=== PATIENT | male | born 1945 | race African-American/Black ===

== ENCOUNTER 2016-11-11 11:39 | Emergency (ER) | payer MEDICARE ==
[~2016-11-11] VITALS: Ht 182.9 cm; Wt 83.9 kg
[~2016-11-11 11:39] MED LIST: ATRIPLA TABLET1 EACH PO; AZITHROMYCIN250 MG PO; HYDROCHLOROTHIA25 MG PO; PRENATAL TABLE1 EAC1 PO; VASOTEC20 MG PO; VITAMIN C500 M2 PO; VITAMIN E400 UNI1 PO; [UNRECOGNIZED DRUG - OTHER] PO
[2016-11-11 12:07] VITALS: BP 142/70
[2016-11-11] MEDS ORDERED: PROMETHAZINE-D118 ML ORAL (12:17)
[2016-11-11] MEDS ORDERED: LEVAQUIN750 MG ORAL (12:17)
[2016-11-11] MEDS ORDERED: ALBUTEROL SULF8.5 GM INH (12:17)
--- NOTE | 2016-11-11 14:11 | Emergency Room Report ---
History of Present Illness General Chief Complaint: Upper Respiratory Illness Source: Patient Present Illness HPI 71-year-old male presents ED complaining of cough times one week. Cough is productive with whitish phlegm. Denies any fevers or chills. Denies chest pain or shortness of breath. Patient notes history of HIV-states he is compliant with his medications and states he has a high CD4 count in a very low viral load. Denies sick contacts or recent travel. No other aggravating relieving factors. Denies any other associated symptoms Allergies: Coded Allergies: No Known Allergies (Unverified , 09/30/12) Patient History Past Medical History: HTN, HIV Past Surgical History: none Pertinent Family History: none Social History: Denies: alcohol use, drug use, smoking Immunizations: UTD Reviewed Nursing Documentation: PMH: Agreed, PSxH: Agreed Nursing Documentation-PMH Past Medical History: No History, Except For Hx Hypertension: Yes Review of Systems All Other Systems: negative except mentioned in HPI Physical Exam Vital Signs Date Time Temp Pulse Resp B/P Pulse Ox O2 Delivery O2 Flow Rate FiO2 11/11/16 11:54 97.9 86 16 142/70 97 Room Air Sp02 EP Interpretation: reviewed, normal General Appearance: no apparent distress, alert, GCS 15, non-toxic Head: normocephalic, atraumatic Eyes: bilateral eye PERRL, bilateral eye normal inspection ENT: hearing grossly normal, normal pharynx, no angioedema, normal voice Neck: full range of motion, supple/symm/no masses Respiratory: chest non-tender, lungs clear, normal breath sounds, speaking full sentences Cardiovascular #1: regular rate, rhythm, no edema Cardiovascular #2: 2+ carotid (R), 2+ carotid (L), 2+ radial (R), 2+ radial (L) , 2+ dorsalis pedis (R), 2+ dorsalis pedis (L) Gastrointestinal: normal bowel sounds, non tender, soft, non-distended, no guarding, no rebound Rectal: deferred Genitourinary: normal inspection, no CVA tenderness Musculoskeletal: back normal, gait/station normal, normal range of motion, non- tender Neurologic: alert, oriented x3, responsive, motor strength/tone normal, sensory intact, speech normal Psychiatric: judgement/insight normal, memory normal, mood/affect normal, no suicidal/homicidal ideation Reflexes: 3+ bicep (R), 3+ bicep (L), 3+ tricep (R), 3+ tricep (L), 3+ knee (R) , 3+ knee (L) Skin: normal color, no rash, warm/dry, well hydrated Lymphatic: no adenopathy Medical Decision Making Diagnostic Impression: Primary Impression: Atypical pneumonia ER Course Hospital Course 71-year-old male presents to ED with cough times one week Differential diagnoses include: URI, pharyngitis, otitis media, asthma Clinical course Patient placed on stretcher. After initial history, physical exam reveals an elderly male in no acute distress. Bilateral TM unremarkable. No pharyngeal erythema. No tonsillar exudates. No lymphadenopathy. lungs clear. abdomen soft. Given patient's age and immunocompromised date we will treat with antibiotics Diagnosis - atypical pneumonia Stable and discharged home with Rx Levaquin, albuterol, cough syrup. Instructed to followup with PMD. Return to ED if symptoms recur or worsen Last Vital Signs Date Time Temp Pulse Resp B/P Pulse Ox O2 Delivery O2 Flow Rate FiO2 11/11/16 12:09 97.9 16 142/70 97 Room Air 11/11/16 12:07 86 Status: improved Disposition: HOME, SELF-CARE Condition: Stable Scripts D-Methorphan Hb/Prometh Hcl* (PROMETHAZINE-DM SYRUP*) 118 Ml Syrup 5 ML ORAL Q6H Y for For Cough, #118 ML 0 Refills Prov: ZEV CLEMENTS M.D. 11/11/16 Albuterol Sulfate* (ALBUTEROL SULFATE MDI*) 8.5 Gm Hfa.aer.ad 2 PUFF INH Q4H Y for cough/wheezing, #1 EA 0 Refills Prov: ZEV CLEMENTS M.D. 11/11/16 Levofloxacin* (LEVAQUIN*) 750 Mg Tablet 750 MG ORAL DAILY, #5 TAB Prov: ZEV CLEMENTS M.D. 11/11/16 Patient Instructions: Community-Acquired Pneumonia, Adult, [id number] ZEV CLEMENTS M.D. Nov 11, 2016 14:11
== END 2016-11-11 12:33 | disposition home or self-care (01) ==
LOC: EMR 12:15
DX: J18.9 Pneumonia, unspecified organism (principal); I10 Essential (primary) hypertension
CPT/HCPCS: 99284

== ENCOUNTER 2016-11-29 14:23 | Emergency (ER) | payer MEDICARE ==
[~2016-11-29] VITALS: Ht 182.9 cm; Wt 83.9 kg
[~2016-11-29 14:23] MED LIST changes: +ALBUTEROL SULF8.5 GM INH; +LEVAQUIN750 MG ORAL; +PROMETHAZINE-D118 ML ORAL
[2016-11-29] MEDS ORDERED: PROMETHAZINE-D118 ML ORAL (15:17)
[2016-11-29 15:28] VITALS: BP 151/90
--- NOTE | 2016-11-29 21:25 | Emergency Room Report ---
History of Present Illness General Chief Complaint: Upper Respiratory Illness Source: Patient (CHASE GARVIN) Present Illness HPI The patient is a 71-year-old male with history of HIV presenting for continued productive cough which began 3 weeks prior. The patient was seen in this emergency Department and treated for atypical pneumonia. Patient was given a prescription for Levaquin and cough medication. The patient states that symptoms did improve and the patient has not had a fever since finishing the antibiotics the cough has persisted. Patient states the cough this is a white sputum only. The patient denies any other symptoms including F, Chills, N, V, SANCHEZ, neck pain/stiffness, SOB, CP (CHASE GARVIN) Allergies: Coded Allergies: No Known Allergies (Unverified , 09/30/12) Patient History Past Medical History: see triage record Pertinent Family History: none Reviewed Nursing Documentation: PMH: Agreed, PSxH: Agreed (CHASE GARVIN) Nursing Documentation-PMH Past Medical History: No History, Except For Hx Hypertension: Yes (CHASE GARVIN) Review of Systems All Other Systems: negative except mentioned in HPI (CHASE GARVIN) Physical Exam Vital Signs Date Time Temp Pulse Resp B/P Pulse Ox O2 Delivery O2 Flow Rate FiO2 11/29/16 14:39 98.1 87 22 135/79 95 Room Air Sp02 EP Interpretation: reviewed, normal General Appearance: no apparent distress, alert, GCS 15, non-toxic Head: normocephalic, atraumatic Eyes: bilateral eye PERRL, bilateral eye normal inspection ENT: hearing grossly normal, normal pharynx, no angioedema, normal voice Neck: full range of motion, supple/symm/no masses Respiratory: chest non-tender, lungs clear, normal breath sounds, speaking full sentences Cardiovascular #1: regular rate, rhythm, no edema Gastrointestinal: normal bowel sounds, non tender, soft, non-distended, no guarding, no rebound Musculoskeletal: back normal, gait/station normal, normal range of motion, non- tender Neurologic: alert, oriented x3, responsive, motor strength/tone normal, sensory intact, normal gait, speech normal Psychiatric: judgement/insight normal, memory normal, mood/affect normal, no suicidal/homicidal ideation Skin: normal color, no rash, warm/dry, well hydrated Lymphatic: no adenopathy (CHASE GARVIN) Medical Decision Making [place] Attestation Dr. Godoy is my supervising physician. Patient management was discussed with my supervising physician (CHASE GARVIN) Medicare Attestation The history of Maxime Caraballo has been reviewed and management options for him have been examined and discussed by Mitch Godoy. I have personally examined and interviewed the patient. (MITCH GODOY M.D.) Diagnostic Impression: Primary Impression: Atypical pneumonia ER Course The patient is a 71-year-old male with history of HIV presenting for continued productive cough Differential diagnosis include but not limited to pharyngitis, sinusitis, AOM, bronchitis, PNA PE: No apparent distress. No TTP over maxillary or frontal sinuses. Lungs CTA bilat. No wheezing. No accessory muscle use. Heart: RRR, no abnormal heart sounds Ears: external auditory canal clear. Non erythematous. Bilat TM intact. Cone of light present bilat. No bulging of TM. No serous fluid seen. no nasal D/C no cervical lymphad No tonsillar exudate. Uvula midline.Oropharynx non erythematous Patient is advised that there are no signs of infection other than cough and symptoms have improved since last visit. The patient will not be placed on your antibiotics. Patient will be given a prescription for cough medication and is given ER precautions. Patient will follow up with his PMD (CHASE GARVIN) Last Vital Signs Date Time Temp Pulse Resp B/P Pulse Ox O2 Delivery O2 Flow Rate FiO2 11/29/16 15:28 91 16 151/90 99 Room Air 11/29/16 15:28 98.0 Status: improved (CHASE GARVINAYaniv) Disposition: HOME, SELF-CARE Condition: Improved Scripts D-Methorphan Hb/Prometh Hcl* (PROMETHAZINE-DM SYRUP*) 118 Ml Syrup 5 ML ORAL Q6H Y for For Cough, #118 ML 0 Refills Prov: CHASE GARVIN 11/29/16 Referrals: [facility],REFERRING (PCP) Patient Instructions: Cough, Adult Additional Instructions: I discussed my findings with the patient. All questions and concerns have been answered. Treatment and medication compliance have been addressed. I advised the patient that they need to follow up with PMD in 3-5 days. Return to ED if pain remains or worsens, cough worsens or remains, you notice blood in your sputum, you notice wheezing, you experience a fever, or if needed for any reason. Patient verbalized understanding of discharge instructions. CHASE GARVIN Nov 29, 2016 21:25 MITCH GODOY M.D. Dec 02, 2016 06:32
== END 2016-11-29 16:30 | disposition home or self-care (01) ==
LOC: EMR 16:17
DX: J18.9 Pneumonia, unspecified organism (principal); I10 Essential (primary) hypertension
CPT/HCPCS: 99283

== ENCOUNTER 2017-11-16 13:39 | Emergency (ER) | payer MEDICARE ==
[~2017-11-16] VITALS: Ht 185.4 cm; Wt 83.9 kg
--- NOTE | 2017-11-16 14:43 | Diagnostic Imaging Report ---
Indication: Cough Comparison: July 14, 2012 A single view chest radiograph was obtained. Findings: Cardiomediastinal appearance is within normal limits for age. Aorta is mildly calcified. Pulmonary vascularity is appropriate. The diaphragmatic contour is smooth and costophrenic angles are sharp. No pleural effusions are identified. The bones are unremarkable. Impression: No acute findings
[2017-11-16] MEDS ORDERED: Albuterol ud Inhalation HHN ONE (14:45)
--- NOTE | 2017-11-16 15:16 | Emergency Room Report ---
History of Present Illness General Chief Complaint: Upper Respiratory Illness Source: Patient, Medical Record Present Illness HPI This patient is HIV positive. He states that he is on antiretroviral therapy. He states his viral load is undetectable and a CD4 count is within normal limits. He reports that he has had cough and congestion for the past 3 days. He has had some sputum production that is white in color. He denies chest pain or shortness of breath. He denies abdominal pain. He denies fever or chills. He denies nausea or vomiting. He denies that headache or neck pain. He has no other complaints. Allergies: Coded Allergies: No Known Allergies (Unverified , 09/30/12) Patient History Past Medical History: see triage record, HTN, HIV Social History: Denies: smoking, alcohol use, drug use Reviewed Nursing Documentation: PMH: Agreed, PSxH: Agreed Nursing Documentation-PMH Past Medical History: No History, Except For Hx Hypertension: Yes Review of Systems All Other Systems: negative except mentioned in HPI Physical Exam Vital Signs Date Time Temp Pulse Resp B/P (MAP) Pulse Ox O2 Delivery O2 Flow Rate FiO2 11/16/17 13:50 99.4 99 18 144/69 94 Room Air 99.3 11/16/17 15:06 21 Sp02 EP Interpretation: reviewed, normal General Appearance: no apparent distress, alert, GCS 15, non-toxic Head: normocephalic, atraumatic Eyes: bilateral eye normal inspection, bilateral eye PERRL ENT: hearing grossly normal, normal pharynx, no angioedema, normal voice Neck: full range of motion, supple/symm/no masses Respiratory: chest non-tender, no respiratory distress, no retraction, no accessory muscle use, speaking full sentences, wheezing, expiration Cardiovascular #1: regular rate, rhythm, no edema Gastrointestinal: normal bowel sounds, non tender, soft, non-distended, no guarding, no rebound Rectal: deferred Musculoskeletal: back normal, gait/station normal, normal range of motion, non- tender Neurologic: alert, oriented x3, responsive, motor strength/tone normal, sensory intact, speech normal Psychiatric: judgement/insight normal, memory normal, mood/affect normal, no suicidal/homicidal ideation Skin: normal color, no rash, warm/dry, well hydrated Medical Decision Making Diagnostic Impression: Primary Impression: Upper respiratory infection Additional Impression: Reactive airway disease with wheezing ER Course This patient has a clinical presentation consistent with upper respiratory infection and reactive airway disease. Patient has wheezing on physical exam. The patient was given albuterol nebulizer treatments. The patient's lung exam improved significantly. I will also treat the patient with a course of antibiotics as this has been shown to improve the course of reactive airway disease, and further I am concerned that this patient is immunocompromised at baseline. Overall, he is well appearing without respiratory distress and nontoxic. At this time, the patient does not require hospital admission. The patient was given close return precautions and followup instructions. Laboratory Tests Test 11/16/17 15:06 11/16/17 16:15 White Blood Count 8.2 K/UL (4.8-10.8) Red Blood Count 4.21 M/UL (4.70-6.10) L Hemoglobin 14.4 G/DL (14.2-18.0) Hematocrit 41.5 % (42.0-52.0) L Mean Corpuscular Volume 99 FL (80-99) Mean Corpuscular Hemoglobin 34.2 PG (27.0-31.0) H Mean Corpuscular Hemoglobin Concent 34.7 G/DL (32.0-36.0) Red Cell Distribution Width 10.8 % (11.6-14.8) L Platelet Count 150 K/UL (150-450) Mean Platelet Volume 8.6 FL (6.5-10.1) Neutrophils (%) (Auto) 47.5 % (45.0-75.0) Lymphocytes (%) (Auto) 36.6 % (20.0-45.0) Monocytes (%) (Auto) 13.0 % (1.0-10.0) H Eosinophils (%) (Auto) 1.0 % (0.0-3.0) Basophils (%) (Auto) 1.9 % (0.0-2.0) Sodium Level 135 MMOL/L (136-145) L Potassium Level 3.4 MMOL/L (3.5-5.1) L Chloride Level 98 MMOL/L (98-107) Carbon Dioxide Level 27 MMOL/L (21-32) Anion Gap 10 mmol/L (5-15) Blood Urea Nitrogen 13 mg/dL (7-18) Creatinine 1.3 MG/DL (0.55-1.30) Estimate Glomerular Filtration Rate mL/min (>60) Glucose Level 82 MG/DL (74-106) Lactic Acid Level Pending Calcium Level 9.4 MG/DL (8.5-10.1) Total Bilirubin 0.6 MG/DL (0.2-1.0) Aspartate Amino Transferase (AST) 36 U/L (15-37) Alanine Aminotransferase (ALT) 25 U/L (12-78) Alkaline Phosphatase 56 U/L (46-116) Total Protein 7.9 G/DL (6.4-8.2) Albumin 3.5 G/DL (3.4-5.0) Globulin 4.4 g/dL Albumin/Globulin Ratio 0.8 (1.0-2.7) L Urine Color Pale yellow Urine Appearance Clear Urine pH 7 (4.5-8.0) Urine Specific Ringle 1.005 (1.005-1.035) Urine Protein Negative (NEGATIVE) Urine Glucose (UA) Negative (NEGATIVE) Urine Ketones Negative (NEGATIVE) Urine Occult Blood 2+ (NEGATIVE) H Urine Nitrite Negative (NEGATIVE) Urine Bilirubin Negative (NEGATIVE) Urine Urobilinogen Normal MG/DL (0.0-1.0) Urine Leukocyte Esterase Negative (NEGATIVE) Urine RBC 2-4 /HPF (0 - 0) H Urine WBC 0-2 /HPF (0 - 0) Urine Squamous Epithelial Cells None /LPF (NONE/OCC) Urine Bacteria Few /HPF (NONE) EKG Diagnostic Results Rate: normal Rhythm: NSR ST Segments: no acute changes Rhythm Strip Diag. Results EP Interpretation: yes Rate: 90's Rhythm: NSR, no PVC's, no ectopy Chest X-Ray Diagnostic Results Chest X-Ray Diagnostic Results : Chest X-Ray Ordered: Yes # of Views/Limited/Complete: 1 View Indication: Other - cough EP Interpretation: No Interpretation: no consolidation, no effusion, no pneumothorax, no acute cardiopulmonary disease Impression: No acute disease Electronically Signed by: Rustam Last Vital Signs Date Time Temp Pulse Resp B/P (MAP) Pulse Ox O2 Delivery O2 Flow Rate FiO2 11/16/17 15:06 82 20 93 Room Air 21 11/16/17 13:50 99.4 144/69 99.3 Disposition: HOME, SELF-CARE Condition: Improved Patient Instructions: Upper Respiratory Infection, Adult CARLOS CHAVARRIA D.O. Nov 16, 2017 15:16
[2017-11-16 16:34] VITALS: BP 136/70
[2017-11-16 16:40] LABS: BASOPHILS % (AUTO) 1.9 % (0.0-2.0); HEMATOCRIT 41.5 % (42.0-52.0); HEMOGLOBIN 14.4 G/DL (14.2-18.0); LYMPHOCYTES % (AUTO) 36.6 % (20.0-45.0); MEAN CORPUSCULAR VOLUME 99 FL (80-99); NEUTROPHILS % (AUTO) 47.5 % (45.0-75.0); PLATELET COUNT 150 K/UL (150-450); RED BLOOD COUNT 4.21 M/UL (4.70-6.10); RED CELL DISTRIBUTION WIDTH 10.8 % (11.6-14.8); WHITE BLOOD COUNT 8.2 K/UL (4.8-10.8)
[2017-11-16 16:47] LABS: APPEARANCE,URINE CLEAR; BILIRUBIN, URINE NEGATIVE (NEGATIVE); COLOR,URINE PALE YELLOW; GLUCOSE, URINE (UA) NEGATIVE (NEGATIVE); KETONES,URINE NEGATIVE (NEGATIVE); LEUKOCYTE ESTERASE ,URINE NEGATIVE (NEGATIVE); NITRITE,URINE NEGATIVE (NEGATIVE); PH,URINE 7 (4.5-8.0); PROTEIN,URINE NEGATIVE (NEGATIVE); UROBILINOGEN,URINE NORMAL MG/DL (0.0-1.0)
[2017-11-16 16:57] LABS: ANION GAP 10 mmol/L (5-15); BLOOD UREA NITROGEN 13 mg/dL (7-18); CALCIUM 9.4 MG/DL (8.5-10.1); CARBON DIOXIDE 27 MMOL/L (21-32); CHLORIDE 98 MMOL/L (98-107); CREATININE 1.3 MG/DL (0.55-1.30); POTASSIUM 3.4 MMOL/L (3.5-5.1); SODIUM 135 MMOL/L (136-145)
[2017-11-16 17:02] LABS: ALANINE AMINOTRANSFERASE 25 U/L (12-78); ALBUMIN 3.5 G/DL (3.4-5.0); ALBUMIN/GLOBULIN RATIO 0.8 (1.0-2.7); ALKALINE PHOSPHATASE 56 U/L (46-116); ASPARTATE AMINO TRANSFERASE 36 U/L (15-37); BILIRUBIN,TOTAL 0.6 MG/DL (0.2-1.0)
[2017-11-16] MEDS ORDERED: ZITHROMAX250 MG ORAL (17:17)
[2017-11-16] MEDS ORDERED: ALBUTEROL SULF8.5 GM INH (17:17)
[2017-11-16 17:33] VITALS: BP 162/78
[2017-11-16 18:02] VITALS: BP 162/78
--- NOTE | 2017-11-20 16:23 | Cardiology Report ---
APPROVED REPORT EKG Measurement Heart [id number] Normal sinus rhythm Possible Left atrial enlargement Nonspecific T wave abnormality Abnormal ECG
== END 2017-11-16 18:02 | disposition home or self-care (01) ==
LOC: EMR 15:20
DX: J06.9 Acute upper respiratory infection, unspecified (principal); J45.909 Unspecified asthma, uncomplicated; I10 Essential (primary) hypertension
CPT/HCPCS: 36415; 71045; 80053; 81003; 83605; 85025; 87040; 93005; 94640; 96361; 96374; 99284

== ENCOUNTER 2018-01-30 00:18 | Emergency (ER) | payer MEDICARE, OTHER ==
[~2018-01-30] VITALS: Ht 182.9 cm; Wt 86.2 kg
[~2018-01-30 00:18] MED LIST changes: +ZITHROMAX250 MG ORAL
[2018-01-30 00:34] VITALS: BP 143/77
[2018-01-30] MEDS ORDERED: PREDNISONE20 MG ORAL (00:45)
[2018-01-30] MEDS ORDERED: GUAIFENESIN-CO118 M1 ORAL (00:45)
[2018-01-30] MEDS ORDERED: ALBUTEROL SULF8.5 GM INH (00:45)
--- NOTE | 2018-01-30 00:46 | Emergency Room Report ---
History of Present Illness General Chief Complaint: Upper Respiratory Illness Source: Patient, Medical Record Present Illness HPI This is a 73-year-old male with a history of HIV. CD4 count is normal and viral load is undetectable. He is a nonsmoker. Patient presents with chief complaint of sore throat and cough. Onset yesterday. No fever chills but no nausea no vomiting. Worse with lying flat. Better with sitting up. [place] like her something in his throat. Denies any other complaint. Allergies: Coded Allergies: No Known Allergies (Unverified , 09/30/12) Patient History Past Medical History: see triage record, old chart reviewed, HIV Past Surgical History: other Pertinent Family History: none Social History: Denies: smoking Immunizations: other Reviewed Nursing Documentation: PMH: Agreed; PSxH: Agreed Nursing Documentation-PMH Past Medical History: No History, Except For Hx Hypertension: Yes Review of Systems Eye: Denies: eye pain, blurred vision ENT: Reports: nose congestion, throat pain; Denies: ear pain, throat swelling Respiratory: Reports: cough; Denies: shortness of breath Cardiovascular: Denies: chest pain, palpitations Gastrointestinal: Denies: abdominal pain, diarrhea, nausea, vomiting Musculoskeletal: Denies: back pain, joint pain Skin: Denies: rash Neurological: Denies: headache, numbness Endocrine: Denies: increased thirst, increased urine Hematologic/Lymphatic: Denies: easy bruising All Other Systems: negative except mentioned in HPI Physical Exam Vital Signs Date Time Temp Pulse Resp B/P (MAP) Pulse Ox O2 Delivery O2 Flow Rate FiO2 01/30/18 00:21 98.5 101 19 150/80 94 Room Air 98.4 01/30/18 00:34 94 vitals unremarkable Sp02 EP Interpretation: reviewed, normal General Appearance: well appearing, no apparent distress, alert Head: normocephalic, atraumatic Eyes: bilateral eye PERRL, bilateral eye EOMI ENT: hearing grossly normal, tonsillar swelling, pharyngeal erythema, other - Left TM with effusion. Turbinates edematous. Uvula enlarged. Neck: full range of motion, supple, no meningismus Respiratory: chest non-tender, lungs clear, normal breath sounds Cardiovascular #1: regular rate, rhythm, no murmur Gastrointestinal: normal bowel sounds, non tender, no mass, no organomegaly, no bruit, non-distended Musculoskeletal: back normal, gait/station normal, normal range of motion Psychiatric: mood/affect normal Skin: warm/dry Medical Decision Making Diagnostic Impression: Primary Impression: Upper respiratory infection Qualified Codes: J06.9 - Acute upper respiratory infection, unspecified ER Course Patient with a viral upper respiratory or infection. No evidence of sepsis, pneumonia or bacterial infection. We'll discharge home with symptomatically treatment. Last Vital Signs Date Time Temp Pulse Resp B/P (MAP) Pulse Ox O2 Delivery O2 Flow Rate FiO2 01/30/18 00:34 90 20 Room Air 94 01/30/18 00:34 99.3 143/77 94 99.3 Status: improved Disposition: HOME, SELF-CARE Condition: Stable Scripts Guaifenesin/Codeine Phos* (ROBITUSSIN AC*) 118 Ml Liquid 5 ML ORAL Q6H PRN for For Cough, #118 ML 0 Refills Prov: KARMA GIFFORD M.D. 01/30/18 Prednisone* (PREDNISONE*) 20 Mg Tablet 60 MG ORAL DAILY, #15 TAB Prov: KARMA GIFFORD M.D. 01/30/18 Albuterol Sulfate* (ALBUTEROL SULFATE MDI*) 8.5 Gm Hfa.aer.ad 2 PUFF INH Q4H PRN for cough/wheezing, #1 EA 0 Refills Prov: KARMA GIFFORD M.D. 01/30/18 Patient Instructions: Upper Respiratory Infection, Adult Additional Instructions: You have a viral infection. Increase fluid. Salt water gargle. Follow-up with your DrYaniv in 7 days. Return if symptom worsen. KARMA GIFFORD M.D. January 30, 2018 00:46
[2018-01-30 01:02] VITALS: BP 140/76
[2018-01-30 01:03] VITALS: BP 140/76
== END 2018-01-30 01:08 | disposition home or self-care (01) ==
LOC: EMR 00:51
DX: J06.9 Acute upper respiratory infection, unspecified (principal); I10 Essential (primary) hypertension
CPT/HCPCS: 99284

== ENCOUNTER 2018-08-12 10:26 | Emergency (ER) | payer MEDICARE ==
[~2018-08-12] VITALS: Ht 185.4 cm; Wt 84.8 kg
[~2018-08-12 10:26] MED LIST changes: +GUAIFENESIN-CO118 M1 ORAL; +PREDNISONE20 MG ORAL
[2018-08-12 11:16] VITALS: BP 145/71
[2018-08-12 11:21] LABS: BASOPHILS % (AUTO) 1.6 % (0.0-2.0); EOSINOPHILS % (AUTO) 3.9 % (0.0-3.0); HEMATOCRIT 43.1 % (42.0-52.0); HEMOGLOBIN 14.6 G/DL (14.2-18.0); MEAN CORPUSCULAR VOLUME 94 FL (80-99); NEUTROPHILS % (AUTO) 36.5 % (45.0-75.0); PLATELET COUNT 204 K/UL (150-450); RED BLOOD COUNT 4.58 M/UL (4.70-6.10)
[2018-08-12 11:26] LABS: APPEARANCE,URINE CLEAR; BILIRUBIN, URINE NEGATIVE (NEGATIVE); GLUCOSE, URINE (UA) NEGATIVE (NEGATIVE); KETONES,URINE NEGATIVE (NEGATIVE); LEUKOCYTE ESTERASE ,URINE NEGATIVE (NEGATIVE); NITRITE,URINE NEGATIVE (NEGATIVE); PH,URINE 6.5 (4.5-8.0); PROTEIN,URINE NEGATIVE (NEGATIVE); UROBILINOGEN,URINE NORMAL MG/DL (0.0-1.0)
[2018-08-12 11:30] LABS: COLOR,URINE YELLOW
[2018-08-12 11:31] LABS: ANION GAP 10 mmol/L (5-15); BLOOD UREA NITROGEN 17 mg/dL (7-18); CALCIUM 9.5 MG/DL (8.5-10.1); CARBON DIOXIDE 25 MMOL/L (21-32); CHLORIDE 103 MMOL/L (98-107); CREATININE 1.3 MG/DL (0.55-1.30); POTASSIUM 3.6 MMOL/L (3.5-5.1); SODIUM 138 MMOL/L (136-145)
[2018-08-12 11:35] LABS: ALANINE AMINOTRANSFERASE 20 U/L (12-78); ALBUMIN 3.8 G/DL (3.4-5.0); ALBUMIN/GLOBULIN RATIO 0.9 (1.0-2.7); ALKALINE PHOSPHATASE 64 U/L (46-116); ASPARTATE AMINO TRANSFERASE 23 U/L (15-37); BILIRUBIN,TOTAL 0.5 MG/DL (0.2-1.0)
[2018-08-12 13:15] VITALS: BP 141/70
--- NOTE | 2018-08-12 13:56 | Emergency Room Report ---
History of Present Illness General Chief Complaint: Abdominal Pain Source: Patient Present Illness HPI Patient reported abdominal pain to doctor of pharmacy but more claims back pain radiating to abdomen. He was lifting the metal security door several days ago when the lower back started to hurt. No prior back issues for many years, but accidents many years ago. No incontinence, weakness, numbness. No fevers, chills. No blood thinners, incontinence, oncologic problems. No dysuria or change in bowels. Pain rated 7/10, radiating from back bilaterally to lower abdomen. Worse when bends over. Not radiate down legs. Tried Dayquil with without much help last night. HIV on meds. Has been seen here multiple times for bronchitis - no wheezing H/O HTN Allergies: Coded Allergies: No Known Allergies (Unverified , 09/30/12) Patient History Past Medical History: see triage record Social History: Reports: drug use - but see tox - THC also; Denies: smoking, alcohol use Social History Narrative retail in store Reviewed Nursing Documentation: PMH: Agreed; PSxH: Agreed Nursing Documentation-PMH Hx Hypertension: Yes Review of Systems All Other Systems: negative except mentioned in HPI Physical Exam Vital Signs Date Time Temp Pulse Resp B/P (MAP) Pulse Ox O2 Delivery O2 Flow Rate FiO2 08/12/18 10:35 97.7 74 14 145/71 94 Room Air Sp02 EP Interpretation: reviewed, normal General Appearance: well appearing, no apparent distress, GCS 15 Head: normocephalic Eyes: bilateral eye normal inspection, bilateral eye PERRL ENT: moist mucus membranes Neck: supple Respiratory: lungs clear, normal breath sounds Cardiovascular #1: regular rate, rhythm Cardiovascular #2: 2+ radial (R), 2+ dorsalis pedis (R), 2+ dorsalis pedis (L) Gastrointestinal: normal inspection, normal bowel sounds, no mass, non- distended, tenderness - reported area of tenderness lower abd bilat but soft and no apparent tenderness Musculoskeletal: digits/nails normal, gait/station normal, normal range of motion, tender - lumbar area, not bony or step off. Muscle tightness and paraspinous tend. SLR negative bilat Neurologic: alert, oriented x3, motor strength/tone normal, DTRs symmetric, sensory intact, cerebellar normal, normal gait, speech normal Psychiatric: mood/affect normal Skin: normal inspection, warm/dry Medical Decision Making Diagnostic Impression: Primary Impression: Back strain Qualified Codes: S39.012A - Strain of muscle, fascia and tendon of lower back , initial encounter Additional Impression: Substance abuse ER Course Patient presents with back and lower abdominal pain. DDx; divertiulitis, appendicitis, renal stone, back strain, UTI amongst others. Evaluation with labs. Patient given Motrin. Labs with normal WBC, UA, CMP. Tox + for cocaine. Improved with Motrin. Discussed findings and tentative diagnosis. States he does not believe cocaine is major problem but willing to check out CA. Patient stable for outpatient observation and treatment. Laboratory Tests Test 08/12/18 11:08 White Blood Count 4.0 K/UL (4.8-10.8) L Red Blood Count 4.58 M/UL (4.70-6.10) L Hemoglobin 14.6 G/DL (14.2-18.0) Hematocrit 43.1 % (42.0-52.0) Mean Corpuscular Volume 94 FL (80-99) Mean Corpuscular Hemoglobin 31.9 PG (27.0-31.0) H Mean Corpuscular Hemoglobin Concent 33.9 G/DL (32.0-36.0) Red Cell Distribution Width 11.0 % (11.6-14.8) L Platelet Count 204 K/UL (150-450) Mean Platelet Volume 7.9 FL (6.5-10.1) Neutrophils (%) (Auto) 36.5 % (45.0-75.0) L Lymphocytes (%) (Auto) 48.0 % (20.0-45.0) H Monocytes (%) (Auto) 10.0 % (1.0-10.0) Eosinophils (%) (Auto) 3.9 % (0.0-3.0) H Basophils (%) (Auto) 1.6 % (0.0-2.0) Erythrocyte Sedimentation Rate 8 MM/HR (0-20) Prothrombin Time 10.7 SEC (9.30-11.50) Prothrombin Time INR 1.0 (0.9-1.1) PTT 27 SEC (23-33) Urine Color Yellow Urine Appearance Clear Urine pH 6.5 (4.5-8.0) Urine Specific Taylor 1.010 (1.005-1.035) Urine Protein Negative (NEGATIVE) Urine Glucose (UA) Negative (NEGATIVE) Urine Ketones Negative (NEGATIVE) Urine Blood 1+ (NEGATIVE) H Urine Nitrite Negative (NEGATIVE) Urine Bilirubin Negative (NEGATIVE) Urine Urobilinogen Normal MG/DL (0.0-1.0) Urine Leukocyte Esterase Negative (NEGATIVE) Urine RBC 2-4 /HPF (0 - 0) H Urine WBC 0-2 /HPF (0 - 0) Urine Squamous Epithelial Cells Occasional /LPF Urine Bacteria Occasional /HPF (NONE) Sodium Level 138 MMOL/L (136-145) Potassium Level 3.6 MMOL/L (3.5-5.1) Chloride Level 103 MMOL/L (98-107) Carbon Dioxide Level 25 MMOL/L (21-32) Anion Gap 10 mmol/L (5-15) Blood Urea Nitrogen 17 mg/dL (7-18) Creatinine 1.3 MG/DL (0.55-1.30) Estimate Glomerular Filtration Rate mL/min (>60) Glucose Level 89 MG/DL (74-106) Calcium Level 9.5 MG/DL (8.5-10.1) Total Bilirubin 0.5 MG/DL (0.2-1.0) Aspartate Amino Transferase (AST) 23 U/L (15-37) Alanine Aminotransferase (ALT) 20 U/L (12-78) Alkaline Phosphatase 64 U/L (46-116) Troponin I 0.002 ng/mL (0.000-0.056) Total Protein 8.2 G/DL (6.4-8.2) Albumin 3.8 G/DL (3.4-5.0) Globulin 4.4 g/dL Albumin/Globulin Ratio 0.9 (1.0-2.7) L Lipase 141 U/L (73-393) Urine Opiates Screen Negative (NEGATIVE) Urine Barbiturates Screen Negative (NEGATIVE) Phencyclidine (PCP) Screen Negative (NEGATIVE) Urine Amphetamines Screen Negative (NEGATIVE) Urine Benzodiazepines Screen Negative (NEGATIVE) Urine Cocaine Screen Positive (NEGATIVE) H Urine Marijuana (THC) Screen Positive (NEGATIVE) H Last Vital Signs Date Time Temp Pulse Resp B/P (MAP) Pulse Ox O2 Delivery O2 Flow Rate FiO2 08/12/18 14:06 97.7 72 16 141/70 98 Room Air Status: improved Disposition: HOME, SELF-CARE Condition: Improved Scripts Acetaminophen (Tylenol) 325 Mg Tablet 650 MG ORAL Q6H PRN for Prn Pain/Headache/Temp > 101, #20 TAB 0 Refills Prov: Meng Tai MD 08/12/18 Ibuprofen* (MOTRIN*) 600 Mg Tablet 600 MG ORAL Q6H PRN for For Pain, #20 TAB Prov: Meng Tai MD 08/12/18 Referrals: NOT CHOSEN [facility]/,REFERRING (PCP) Meng Tai MD Aug 12, 2018 13:56
[2018-08-12] MEDS ORDERED: IBUPROFEN600 MG ORAL (14:00)
[2018-08-12] MEDS ORDERED: TYLENOL325 MG ORAL (14:00)
[2018-08-12 14:06] VITALS: BP 141/70
== END 2018-08-12 14:06 | disposition home or self-care (01) ==
LOC: EMR 11:13
DX: S39.012A Strain of muscle, fascia and tendon of lower back, initial encounter (principal); X50.0XXA Overexertion from strenuous movement or load, initial encounter; Y92.89 Other specified places as the place of occurrence of the external cause; I10 Essential (primary) hypertension; F19.10 Other psychoactive substance abuse, uncomplicated
CPT/HCPCS: 36415; 80053; 80307; 81003; 83690; 84484; 85025; 85610; 85651; 85730; 99284

== ENCOUNTER 2019-01-12 08:22 | Emergency (ER) | payer MEDICARE, OTHER ==
[~2019-01-12] VITALS: Ht 182.9 cm; Wt 83.9 kg
[~2019-01-12 08:22] MED LIST changes: +IBUPROFEN600 MG ORAL; +TYLENOL325 MG ORAL
[2019-01-12 08:44] VITALS: BP 112/62
--- NOTE | 2019-01-12 08:46 | Emergency Room Report ---
History of Present Illness General Chief Complaint: Lower Extremity Injury Source: Patient Present Illness HPI Patient caught his left foot under his sink 2 days ago. He's had swelling there. He feels it's bruised. He's been elevating it and putting ice on it and the swelling is still there. He hasn't any fevers or chills. He denies pain unless he is trying to walk and then the pain is minimal and he hasn't taken any pain medication. Pain is rated 2/10 when walking and 0/10 when elevating the foot. No numbness. Patient is stable on antiviral medication with normal CD4 and negative viral load. Patient denies coughing, calf pain, nausea, vomiting, diarrhea, dysuria, chest pain, palpitations. 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 Nursing Documentation: PMH: Agreed; PSxH: Agreed Nursing Documentation-PM Past Medical History: No History, Except For Hx Hypertension: Yes Review of Systems All Other Systems: negative except mentioned in HPI Physical Exam Vital Signs Date Time Temp Pulse Resp B/P (MAP) Pulse Ox O2 Delivery O2 Flow Rate FiO2 01/12/19 08:26 98.2 125 20 94 Room Air Sp02 EP Interpretation: reviewed, normal General Appearance: well appearing, no apparent distress, GCS 15 Head: normocephalic, atraumatic Eyes: bilateral eye normal inspection, bilateral eye PERRL ENT: hearing grossly normal, normal voice, moist mucus membranes Neck: full range of motion, supple Respiratory: no respiratory distress, speaking full sentences Cardiovascular #2: 2+ dorsalis pedis (L) Musculoskeletal: normal range of motion, no calf tenderness, swelling - Midfoot and toes Neurologic: alert, oriented x3, motor strength/tone normal, sensory intact, grossly normal - Normal distal vascular Psychiatric: mood/affect normal Skin: no rash, other - Slight erythema without warmth dorsum of foot Medical Decision Making Diagnostic Impression: Primary Impression: Metatarsal bone fracture Qualified Codes: S92.325A - Nondisplaced fracture of second metatarsal bone, left foot, initial encounter for closed fracture ER Course Patient presents with swelling of his left foot. Differential includes contusion, hematoma, fracture and cellulitis amongst others. X-rays indicated. The patient declines pain medication at this time. He doubts that there is infection there. At this point most likely is that he has a hematoma the foot. X-rays with proximal metatarsal fracture. Short leg splint applied and patient provided with crutches. Distal neurovascular exam normal as checked by me with good position of the splint. Discussed course and treatment plan. Patient stable for outpatient observation and treatment. Other X-Ray Diagnostic Results Other X-Ray Diagnostic Results : X-Ray ordered: Left foot # of Views/Limited Vs Complete: 3 View Indication: Other EP Interpretation: Yes Interpretation: no dislocation, other - Proximal second metatarsal fracture and soft tissue swelling Impression: Other Electronically Signed by: Electronically signed by Meng Tai MD Last Vital Signs Date Time Temp Pulse Resp B/P (MAP) Pulse Ox O2 Delivery O2 Flow Rate FiO2 01/12/19 10:00 98.2 99 23 109/60 99 Room Air Status: improved Disposition: HOME, SELF-CARE Condition: Improved Scripts Ibuprofen* (MOTRIN*) 600 Mg Tablet 600 MG ORAL Q6H PRN for For Pain, #20 TAB Prov: Meng Tai MD 01/12/19 Meng Tai MD January 12, 2019 08:46
[2019-01-12] MEDS ORDERED: IBUPROFEN600 MG ORAL (09:46)
[2019-01-12 10:00] VITALS: BP 109/60
--- NOTE | 2019-01-12 10:26 | Diagnostic Imaging Report ---
Indication: Pain, trauma Technique: 3 views left foot Comparison: none Findings: There is an oblique nondisplaced fracture of the medial corner of the base of the second metatarsal all visible only on the AP view.. No other definite fractures are demonstrated. No dislocations. The joint spaces are preserved. There is a small plantar spur Impression: Positive for second metatarsal base fracture. Findings previously discussed by phone with Dr. Tai in the emergency room
== END 2019-01-12 09:59 | disposition home or self-care (01) ==
LOC: EMR 08:57
DX: S92.325A Nondisplaced fracture of second metatarsal bone, left foot, initial encounter for closed fracture (principal); I10 Essential (primary) hypertension; W23.0XXA Caught, crushed, jammed, or pinched between moving objects, initial encounter; Y92.009 Unspecified place in unspecified non-institutional (private) residence as the place of occurrence of the external cause
CPT/HCPCS: 99283

== ENCOUNTER 2019-03-06 09:13 | Emergency (ER) | payer MEDICAID, MEDICARE, OTHER ==
[~2019-03-06] VITALS: Ht 182.9 cm; Wt 90.7 kg
--- NOTE | 2019-03-06 09:23 | NUR ---
ED Nurse Note: Patient walked into ED to get checked up on his left foot, patient reports [place] [facility] [place]. patient reports cast was removed yesterday 03/05/19 and he wants to get checked up before he goes to work on 03/13/19. patient denies any pain.
[2019-03-06 09:28] VITALS: BP 121/72
[2019-03-06] MEDS ORDERED: Bacitracin Oint UD TOPIC ONE (09:45)
[2019-03-06 10:07] LABS: BASOPHILS % (AUTO) 1.3 % (0.0-2.0); EOSINOPHILS % (AUTO) 1.7 % (0.0-3.0); HEMATOCRIT 42.4 % (42.0-52.0); HEMOGLOBIN 14.3 G/DL (14.2-18.0); LYMPHOCYTES % (AUTO) 42.9 % (20.0-45.0); MEAN CORPUSCULAR VOLUME 97 FL (80-99); MONOCYTES % (AUTO) 10.2 % (1.0-10.0); NEUTROPHILS % (AUTO) 43.8 % (45.0-75.0); PLATELET COUNT 164 K/UL (150-450); RED BLOOD COUNT 4.39 M/UL (4.70-6.10); RED CELL DISTRIBUTION WIDTH 11.5 % (11.6-14.8); WHITE BLOOD COUNT 5.8 K/UL (4.8-10.8)
[2019-03-06 10:31] LABS: ALANINE AMINOTRANSFERASE 28 U/L (12-78); ALBUMIN 3.9 G/DL (3.4-5.0); ALBUMIN/GLOBULIN RATIO 0.9 (1.0-2.7); ALKALINE PHOSPHATASE 65 U/L (46-116); ANION GAP 13 mmol/L (5-15); ASPARTATE AMINO TRANSFERASE 25 U/L (15-37); BILIRUBIN,TOTAL 0.5 MG/DL (0.2-1.0); BLOOD UREA NITROGEN 18 mg/dL (7-18); CARBON DIOXIDE 25 MMOL/L (21-32); CHLORIDE 106 MMOL/L (98-107); CREATININE 1.5 MG/DL (0.55-1.30); POTASSIUM 3.6 MMOL/L (3.5-5.1); SODIUM 144 MMOL/L (136-145)
--- NOTE | 2019-03-06 11:45 | Diagnostic Imaging Report ---
Indication: Foot pain Comparison: None Findings: 3 views of the left foot were obtained. There are intra-articular fractures at the base of the second third and fourth metatarsals possibly the fifth as well. Disruption of Lisfranc ligament is not excluded. There is soft tissue swelling present. IMPRESSION: Acute fractures involving the metatarsal bases of the second through fourth metatarsals. Possibility of Lisfranc ligament injury is not excluded.
--- NOTE | 2019-03-06 12:44 | Emergency Room Report ---
History of Present Illness General Chief Complaint: Wound Recheck/Suture Removal Source: Patient Present Illness Allergies: Coded Allergies: No Known Allergies (Unverified , 09/30/12) Nursing Documentation-[facility] Past Medical History: No History, Except For Hx Hypertension: Yes Physical Exam Vital Signs Date Time Temp Pulse Resp B/P (MAP) Pulse Ox O2 Delivery O2 Flow Rate FiO2 03/06/19 09:17 98.6 105 20 125/70 (88) 94 Room Air Medical Decision Making Diagnostic Impression: Primary Impression: Foot fracture Qualified Codes: S92.902K - Unspecified fracture of left foot, subsequent encounter for fracture with nonunion Additional Impressions: Renal insufficiency Cellulitis Qualified Codes: L03.116 - Cellulitis of left lower limb ER Course Patient presents with wound recheck with redness of his lower leg post foot fracture. Differential includes cellulitis, reaction to Ortho boot, DVT, foot fracture amongst others. Evaluation will be with labs and repeat x-ray. The patient is treated for pain is small lesion on the skin which we will be treated with bacitracin. Foot x-ray reveals poorly healing metatarsal fractures (see below). Labs essentially unremarkable except for slightly elevated creatinine. Sedimentation rate normal. Splint applied by tech. Position excellent. Distal neurovascular exam normal. Discussed the need for orthopedic follow-up and possibly needing surgery. Also discussed the possibility of cellulitis and the fact that we were prescribing antibiotics. Patient stable for outpatient observation and treatment. Laboratory Tests Test 03/06/19 09:47 White Blood Count 5.8 K/UL (4.8-10.8) Red Blood Count 4.39 M/UL (4.70-6.10) L Hemoglobin 14.3 G/DL (14.2-18.0) Hematocrit 42.4 % (42.0-52.0) Mean Corpuscular Volume 97 FL (80-99) Mean Corpuscular Hemoglobin 32.6 PG (27.0-31.0) H Mean Corpuscular Hemoglobin Concent 33.7 G/DL (32.0-36.0) Red Cell Distribution Width 11.5 % (11.6-14.8) L Platelet Count 164 K/UL (150-450) Mean Platelet Volume 9.1 FL (6.5-10.1) Neutrophils (%) (Auto) 43.8 % (45.0-75.0) L Lymphocytes (%) (Auto) 42.9 % (20.0-45.0) Monocytes (%) (Auto) 10.2 % (1.0-10.0) H Eosinophils (%) (Auto) 1.7 % (0.0-3.0) Basophils (%) (Auto) 1.3 % (0.0-2.0) Erythrocyte Sedimentation Rate 15 MM/HR (0-20) Sodium Level 144 MMOL/L (136-145) Potassium Level 3.6 MMOL/L (3.5-5.1) Chloride Level 106 MMOL/L (98-107) Carbon Dioxide Level 25 MMOL/L (21-32) Anion Gap 13 mmol/L (5-15) Blood Urea Nitrogen 18 mg/dL (7-18) Creatinine 1.5 MG/DL (0.55-1.30) H Estimate Glomerular Filtration Rate mL/min (>60) Glucose Level 104 MG/DL (74-106) Calcium Level 10.0 MG/DL (8.5-10.1) Total Bilirubin 0.5 MG/DL (0.2-1.0) Aspartate Amino Transferase (AST) 25 U/L (15-37) Alanine Aminotransferase (ALT) 28 U/L (12-78) Alkaline Phosphatase 65 U/L (46-116) Total Protein 8.1 G/DL (6.4-8.2) Albumin 3.9 G/DL (3.4-5.0) Globulin 4.2 g/dL Albumin/Globulin Ratio 0.9 (1.0-2.7) L Other X-Ray Diagnostic Results Other X-Ray Diagnostic Results : # of Views/Limited Vs Complete: 3 View Indication: Other EP Interpretation: Yes Interpretation: no dislocation, other - Fractures of metatarsals possible Lisfranc dissociation Impression: Other Electronically Signed by: Electronically signed by Meng Tai MD Last Vital Signs Date Time Temp Pulse Resp B/P (MAP) Pulse Ox O2 Delivery O2 Flow Rate FiO2 03/06/19 12:51 98.6 98 19 121/72 97 Room Air Status: improved Disposition: HOME, SELF-CARE Condition: Improved Scripts Cephalexin* (KEFLEX*) 500 Mg Capsule 500 MG ORAL EVERY 6 HOURS, #28 CAP Prov: Meng Tai MD 03/06/19 Referrals: NOT CHOSEN IPA/,REFERRING (PCP) Meng Tai MD Mar 06, 2019 12:44
[2019-03-06] MEDS ORDERED: CEPHALEXIN500 MG ORAL (12:47)
[2019-03-06 12:51] VITALS: BP 121/72
--- NOTE | 2019-03-06 12:52 | NUR ---
ER DISCHARGE NOTE: Patient is cleared to be discharged per ERMD DR. MATTHEWS, pt is aox4, on room air, with stable vital signs. pt was given dc and prescription instructions, pt was able to verbalize understanding, pt id band removed without complications. pt is able to ambulate with steady gait. pt took all belongings.
== END 2019-03-06 12:49 | disposition home or self-care (01) ==
LOC: EMR 09:45
DX: S92.902K Unspecified fracture of left foot, subsequent encounter for fracture with nonunion (principal); L03.116 Cellulitis of left lower limb; N28.9 Disorder of kidney and ureter, unspecified; I10 Essential (primary) hypertension; X58.XXXD Exposure to other specified factors, subsequent encounter
CPT/HCPCS: 29515; 36415; 80053; 85025; 85651; 99283